=== PATIENT | male | born 1970 | race Caucasian/White ===

== ENCOUNTER 2018-12-23 07:12 | Inpatient (IN) ==
[2018-12-23] MEDS ORDERED: Heparin 1,000 UNITS/500 mL 500 ML ONE (07:23)
[2018-12-23] MEDS ORDERED: *HR* Rocuronium Bromide 50 MG/5 ML VIAL ONE ×3 (07:26→11:51)
[2018-12-23] MEDS ORDERED: Dexamethasone 4 MG/ML VIAL ONE (07:26)
[2018-12-23] MEDS ORDERED: Lidocaine -MPF 2% 2 ML VIAL ONE ×2 (07:26→07:27)
[2018-12-23] MEDS ORDERED: Ondansetron 4 MG/2 ML VIAL ONE (07:26)
[2018-12-23] MEDS ORDERED: *HR* Succinylcholine 200 MG/10 ML VIAL IVP ONE (07:26)
[2018-12-23] MEDS ORDERED: *HR* Propofol 200 MG/20 ML VIAL IVP ONE (07:37)
[2018-12-23] MEDS ORDERED: *HR* Midazolam HCl 2 MG/2 ML VIAL ONE (07:37)
[2018-12-23] MEDS ORDERED: *HR* FentaNYL (PF) 100 MCG/2 ML VIAL ONE (07:37)
[2018-12-23] MEDS ORDERED: CeFAZolin Syr 2,000MG/20 ML 2,000 MG/20 ML SYRINGE IVPB ONE (07:38)
[2018-12-23] MEDS ORDERED: *HR* Remifentanil 2 MG VIAL IVP ONE (07:42)
[2018-12-23] MEDS ORDERED: cefOXitin 1,000 MG, Sodium Chloride IRRigation 1,000 ML IR ONE (07:45)
[2018-12-23] MEDS ORDERED: Ringers Solution, Lactated 1,000 ML IVC SCH (07:45)
[2018-12-23] MEDS ORDERED: Famotidine 20 MG/2 ML VIAL IVP ONE (07:50)
[2018-12-23] MEDS ORDERED: Acetaminophen IV 1,000 MG/100 ML INFUS..BTL IVPB ONE (07:51)
[2018-12-23] MEDS ORDERED: Albumin Human 5% 0 GM/0 ML VIAL ONE (07:53)
[2018-12-23] MEDS ORDERED: *HR* Vasopressin 20 UNIT/ML VIAL ONE ×2 (07:53→10:23)
--- NOTE | 2018-12-23 07:53 | Anesthesia Evaluation PreOp ---
Date of Encounter: 12/23/18 Time of Encounter: 08:00 - Past History Planned Operation: Thoracotomy Esophagogastrectomy Bronchoscopy Cardiac History: Denies any Significant Hx Pulmonary History: Denies Any Significant HX, Other (Allergic Rhinitis) Other Medical History: Other (Achalasia) Anesthesia History: No Prior Anesthetic Complications Alcohol Use: none, occasionally Drug use: none, marijuana Medications and Allergies Phenazopyridine HCl [Pyridium] 200 mg PO TIDAC #6 tab 12/06/17 [Rx] Sulfamethoxazole/Trimeth DS [Bactrim DS] 1 each PO BID #14 tablet 12/06/17 [Rx] Allergy/AdvReac Type Severity Reaction Status Date / Time No Known Allergies Allergy Verified 12/06/17 12:34 - Meds/Allergy Pre-op Review Medications Reviewed: Yes Allergies Reviewed: Yes Beta Blockers on Current Med List: No Anesthesia Results - Labs Laboratory Tests 12/14/18 12/14/18 14:01 14:01 Hgb 13.9 Hct 41.7 Plt Count 306 Sodium 138 Potassium 3.9 BUN 14 Creatinine 0.93 Albumin 4.8 - Imaging EKG: report reviewed ([facility]) Anesthesia Exam O2 Sat Height 1.68 m Weight 58.513 kg Height: 5'6 Weight: 130 lbs NPO (# of Hours): MN Pain Scale: 0 - HEENT Pupil (Motor): Pupils equal, EOMI Mallampati: II Teeth: Normal Oral Opening: Greater than 3 - TELEPHONE ADVICE NURSE LOC: Oriented TELEPHONE ADVICE NURSE Motor: Normal RUE, Normal LUE, Normal RLE, Normal LLE, Normal Face TELEPHONE ADVICE NURSE Sensory: Normal: RUE, LUE, RLE, LLE, Face - Cardiac Rhythm: Regular Murmur: None JVD: No Carotid Bruit: No - Pulmonary Breath Sounds: bilateral Clear Respiratory Effort: Symmetrical Anesthesia Assess/Plan ASA Score: 2 Level of consciousness: Cooperative, Oriented Anesthetic Plan: General Autologous Blood: No Monitoring Plan: Standard Monitors, A-Line, CVC Recovery Plan: PACU (Discussed GA, possible A-Line, poss Central Line, possible Thoracic Epidural, agrees to proceed, possible post op ventilation)
--- NOTE | 2018-12-23 08:06 | History & Physical Report ---
Date of Encounter: 12/23/18 Time of Encounter: 08:06 24 Hour HP Update - Instructions Instructions: If the History and Physical is less than 30 days old and was completed prior to A.M. admission and or procedure and has NOT been updated on calendar day of procedure please complete this update prior to performing procedure. - Update Patient reports changes in Medical Condition: No Changes in examination, assessment, or condition: No Changes in Medication: No Preop tests/diagnostics Reviewed: Yes Surgery Remains Indicated: Yes Consent for Planned Operative Procedure(s) Verified: Yes - Pre-Operative Checklist Preoperative Checklist Indicated: Yes Prophylactic Antibiotic Ordered: Yes Home Medications Include Beta Alphonse: No Beta Alphonse Taken Today (Day of Surgery): No Beta Alphonse Taken Yesterday (Day Prior to Surgery): No Is VTE Prophylaxis Indicated?: Yes
--- NOTE | 2018-12-23 09:15 | Anesthesia Procedures ---
Date of Encounter: 12/23/18 Time of Encounter: 08:50 Procedures: Anesthesia - Arterial Line Consent obtained: written consent Time out performed: Yes Size (Gauge): 20 Length (inches): 1 3/4 Technique Used: sterile prep, guide wire technique, direct puncture technique Post-Procedure: line taped into place, dry sterile dressing placed Patient tolerated procedure: well, no complications Site: Radial R Comments: Dr Lemon attempted several times on left radial artery, able to get blood flow but unable to place guidewire. I was able to place catheter on right radial. Line placed after induction. - Central Line Placement Right SC Consent obtained: written consent Time out performed: Yes Patient placed on monitor/pulse ox: Yes MD prep: mask, gown, gloves Central line prep: Chlorhexidine scrub, sterile drapes applied Ultrasound used for placement: No Technique: Seldinger Lumen Inserted: triple Size / Length: 7 Fr / 16 cm Post procedure: sutured in place, good blood return, all ports aspirated, flushed, capped, sterile dressing applied Patient tolerated procedure: well, no complications Complications: none Comments: Need for central line due to need to monitor CVP and need for good iv access for big case. Subclavian chosen as site due to patient comfort and lower infection risk. Line placed easily with one attempt. No arrythmias. Lines easily aspirated and flushed. Sutured in place. Biopatch and Opsite placed prior to sterile drape removal.
[2018-12-23] MEDS ORDERED: *HR* PHENYLEPHRINE 1,000 MCG/10 ML SYRINGE IVP ONE (09:45)
[2018-12-23] MEDS ORDERED: EPHEDrine 50 MG/ML VIAL ONE (09:46)
[2018-12-23 10:05] LABS: ABG Base Excess -4 mEq/L (-2 to 3); ABG Chloride 106 mEq/L (98-107); ABG Glucose 156 mg/dL (60-95); ABG HCO3 20 mEq/L (21-27); ABG Ionized Calcium 1.14 mmol/L (1.15-1.35); ABG Oxygen Saturation 100 % (95-98); ABG PCO2 31 mmHg (35-45); ABG PH 7.42 pH Units (7.32-7.45); ABG PO2 249 mmHg (85-104); ABG TCO2 21 mEq/L (20-26)
[2018-12-23] MEDS ORDERED: *HR* HYDROMORPHONE 2 MG/ML VIAL ONE (11:35)
[2018-12-23 12:34] LABS: ABG Base Excess -3 mEq/L (-2 to 3); ABG Chloride 106 mEq/L (98-107); ABG Glucose 217 mg/dL (60-95); ABG HCO3 22 mEq/L (21-27); ABG Ionized Calcium 1.12 mmol/L (1.15-1.35); ABG Oxygen Saturation 97 % (95-98); ABG PCO2 38 mmHg (35-45); ABG PH 7.37 pH Units (7.32-7.45); ABG PO2 95 mmHg (85-104); ABG TCO2 23 mEq/L (20-26)
[2018-12-23] MEDS ORDERED: Ketorolac 30 MG/ML VIAL ONE (12:43)
--- NOTE | 2018-12-23 13:33 | Operative Note ---
Date of procedure: 12/23/18 Pre-op diagnosis: achalasia, esophageal dysmotility Post-op diagnosis: same Procedure: bronchoscopy, Loco-Luis esophagogastrectomy, feeding jejunostomy Complications: none Anesthesia: GETA Local Anesthetics: 0.5% Sensorcaine HCL SubQ (cc) Co-Surgeon: Keyshawn Friedman Was there an gynecological assistant present: No Estimated blood loss (cc): 60 Specimen: distal esophagus proximal stomach Condition: stable Disposition: ICU Procedure in Detail: Patient was brought to the operating room and placed on the operating table in the supine position. After undergoing general anesthesia central lines and arterial lines were placed by anesthesia. Patient was intubated prepped and draped in the usual sterile fashion. A midline incision was made small amounts of adhesions were taken down throughout the abdomen. Esophagus was mobilized previous partial fundoplication removed. Once encircling the esophagus and dissecting bluntly into the superior mediastinum, the duodenum was kocherized. A pyloroplasty was performed from the stomach or the pylorus onto the duodenum and closed transversely with interrupted 2-0 silk sutures. Once completed 40 cm distal to the ligament of Treitz a feeding jejunostomy was performed placed through the abdominal wall into the mid jejunum with 2 2-0 silk suturesin a pursestring ma feeding tube in the small intestines. The intestine was then tacked to the anterior abdominal wall with interrupted 2-0 silk sutures. Hemostasis was excellent with good mobilization of the distal esophagus and the posterior mediastinum. The right and left gastroepiploic epiploic blood vessels had good pulsatile flow. The left gastric was sacrificed in order to allow mobilization of the stomach. The pyloroplasty appeared to have no leak. Midline was closed with a running 0 doubled stranded Prolene. And then the epidermis and dermis closed with 4-0 Monocryl and a running 3-0 Vicryl respectively. Sterile dressings were applied. A single-lumen endotracheal tube was exchanged for a hemorrhoid endotracheal tube anesthesia had difficulty lacing so I performed a bronchoscopy and U Seldinger technique to place the nasogastric tube through the true vocal cords down into the left mainstem bronchus. Patient was then placed on the operating room table in the left lateral decubitus position with care to pad all pressure points. He was prepped and draped in the usual sterile fashion. Muscle-sparing thoracotomy was made on the lateral border of the latissimus dorsi muscle through the skin down of the subcutaneous tissues with Bovie used to control hemostasis and to continue the d issection down to the chest wall by mobilizing the latissimus dorsi muscle posteriorly, incising the ausculatory triangle, and mobilizing the serratus and your muscle anteriorly. The 5th intercostal space was entered. The esophagus was further mobilized from the hiatus to the azygos vein which had been divided using the vascular stapler. 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 Once mobilizing the esophagus the stomach and esophagus were cut with good venous and pulsatile arterial bleeding from the divided esophagus and stomach. The 2 structures were reanastomosed using interrupted 2-0 Vicryl sutures and just prior to completing the anastomosis the nasogastric tube was advanced down into the new esophagus/mid to distal stomach. Her vertebral nerve blocks were performed. A 28-Irish chest tube placed through a separate skin incision was secured in place with a #2 Ethibond suture. The intercostal space closed with #1 Vicryl. The ausculatory triangle closed with a #1 Vicryl. A flat Waldemar-Keating drain placed through a separate skin incision was secured in place with a #2-0 silk suture. Remaining incision was closed with 2 layers of 0 Vicryl and then a 4-0 Monocryl particular stitch with dressings consisting of Steri-Strips and sterile gauze. Patient was extubated and taken to the intensive care unit.
[2018-12-23] MEDS ORDERED: Ondansetron 4 MG/2 ML VIAL IVP PRN (13:41)
[2018-12-23] MEDS ORDERED: Naloxone 0.4 MG/ML INJ IVP PRN (13:41)
--- NOTE | 2018-12-23 13:54 | Anesthesia Evaluation Post Op ---
Date of Encounter: 12/23/18 Time of Encounter: 14:00 - Lungs Lungs: Clear Ascult./Percussion - Airway Airway: Non-obstructed - Cardiovascular Regular Rate - Mental Status Mental Status: Asleep with brisk response to light stimulation - Pain Pain Scale: 5 - Nausea Vomiting Nausea Vomiting: Not Present - Hydration Hydration: NPO - Discharge PostOp Status: Transfer Patient to floor (To ICU)
[2018-12-23] MEDS: 0.9 % Sodium Chloride 1,000 ML IVC SCH ×2 (15:06→23:37)
[2018-12-23] MEDS: *HR* Heparin 5,000 UNIT/ML VIAL SQ SCH ×2 (15:17→20:42)
[2018-12-23] MEDS: Morphine PCA 30 MG/ 30 ML 30 ML PCA.VIAL IVC PRN (16:10)
[2018-12-23] MEDS: Ipratropium/Albuterol Neb 3 ML IH SCH ×3 (16:22→23:56)
[2018-12-23] MEDS: Ketorolac 15 MG/ML VIAL IVP SCH ×2 (20:41→23:36)
[2018-12-24] MEDS: Ipratropium/Albuterol Neb 3 ML IH SCH ×5 (03:56→19:56)
[2018-12-24 04:06] LABS: Hematocrit 33.7 % (37.5-50.1); Hemoglobin 11.6 g/dL (12.9-16.9); Mean Corpuscular HGB Conc 34.4 g/dL (31.6-35.5); Mean Corpuscular Hemoglobin 29.5 pg (28.0-33.3); Mean Corpuscular Volume 85.8 fL (83.0-100.0); Mean Platelet Volume 9.5 fL (9.4-12.4); Platelet Count 247 K/mcL (140-400); Red Blood Count 3.93 M/mcL (4.19-5.50); Red Cell Distribution Width 12.4 % (11.5-14.5); White Blood Count 14.8 K/mcL (4.3-11.1)
[2018-12-24 04:34] LABS: % Iron Saturation 4 % (20-55); BUN/Creatinine Ratio 18 (6-26); Blood Urea Nitrogen 15 mg/dL (6-20); Carbon Dioxide 23 mEq/L (23-29); Chloride 106 mEq/L (98-107); Glucose 156 mg/dL (70-105); Iron 11 mcg/dL (65-175); Magnesium 1.8 mg/dL (1.6-2.6); Osmolality,Calculated 288 (280-300); Phosphorous 3.3 mg/dL (2.7-4.5); Potassium 4.1 mEq/L (3.5-5.1); Sodium 137 mEq/L (136-145); Transferrin 190 mg/dL (203-362); eGFR For African Americans > 60 (> 60); eGFR For Non-African Americans > 60 (> 60)
[2018-12-24] MEDS: *HR* Heparin 5,000 UNIT/ML VIAL SQ SCH ×3 (06:07→23:08)
[2018-12-24] MEDS: Ketorolac 15 MG/ML VIAL IVP SCH ×4 (06:08→23:08)
[2018-12-24] MEDS: 0.9 % Sodium Chloride 1,000 ML IVC SCH ×2 (08:33→17:51)
[2018-12-24] MEDS: Pantoprazole 40 MG VIAL IVP SCH (08:45)
[2018-12-24] MEDS ORDERED: Iron Sucrose Complex 400 MG in 0.9 % Sodium Chloride 250 ML IVPB ONE (08:56)
[2018-12-24] MEDS ORDERED: Thiamine (B-1) 100 MG in 0.9 % Sodium Chloride 50 ML IVPB ONE (09:06)
[2018-12-24] MEDS ORDERED: Folic Acid 1 MG in 0.9 % Sodium Chloride 50 ML IVPB ONE (09:06)
--- NOTE | 2018-12-24 09:08 | Cardiothoracic Progress Note ---
Date of Encounter: 12/24/18 Time of Encounter: 09:05 - Assessment and plan (1) Esophageal dysmotility Current Visit: Yes Status: Chronic The assessment and plan as outlined above was discussed with the patient and/or family members who expressed understanding and agreement. All questions were answered. rounded with nurse no orders for cvp. replace mg. may ambulate per orders. remove hernandez (2) Achalasia of esophagus Current Visit: Yes Status: Chronic The assessment and plan as outlined above was discussed with the patient and/or family members who expressed understanding and agreement. All questions were answered. (3) Iron deficiency anemia due to dietary causes Current Visit: Yes Status: Chronic The assessment and plan as outlined above was discussed with the patient and/or family members who expressed understanding and agreement. All questions were answered. replace iron today and tomorrow Vital Signs, Last 4 Hours Temp Pulse Resp BP Pulse Ox 12/24/18 08:00 86 14 115/72 96 12/24/18 07:37 16 97 12/24/18 07:30 98.4 F 12/24/18 06:00 95 12 111/68 95 Oxgyen Flow Rate Oxygen Flow Rate (LPM) 8 Clinical Data, last 8 Hours Output, Chest Tube Drainage 30 Amount [Right Mid-Axillary Chest] Output, Chest Tube Drainage 50 Amount [Right Mid-Axillary Chest] Weight 12/22/18 12/23/18 12/24/18 23:59 23:59 23:59 Weight 58.513 kg 59.6 kg - Physical Examination General: Conversant, No Apparent Distress, Well developed, Well nourished HEENT: Atraumatic Cardiac: Reg Rate and Rhythm, Normal S1 and S2 Incision: No signs of infection Chest tubes: Minimal drainage Lungs: Normal Breath Sounds Neuro: Alert and responsive, No focal deficits noted, Cranial nerves intact, Motor nerves intact Abdomen: Soft - Labs 12/24/18 03:59 12/24/18 03:59 Lab Results, Last 24 hours 12/24/18 12/24/18 03:59 03:59 WBC 14.8 H Hgb 11.6 L Hct 33.7 L Plt Count 247 Sodium 137 Potassium 4.1 Chloride 106 Carbon Dioxide 23 BUN 15 Creatinine 0.83 Glucose 156 H Calcium 8.0 L Magnesium 1.8 - Imaging Chest Xray: image reviewed - VTE Documentation of Mechanical Device: Intermittent pneumatic compression device Consult Discharge Plan - Plan Referrals: Ramsey Gama MD [Primary Care Provider] -
[2018-12-25] MEDS: Ipratropium/Albuterol Neb 3 ML IH SCH ×5 (00:19→22:46)
[2018-12-25] MEDS: 0.9 % Sodium Chloride 1,000 ML IVC SCH ×3 (01:51→11:44)
[2018-12-25 03:57] LABS: Hematocrit 29.8 % (37.5-50.1); Mean Corpuscular HGB Conc 33.6 g/dL (31.6-35.5); Mean Corpuscular Hemoglobin 29.8 pg (28.0-33.3); Mean Corpuscular Volume 88.7 fL (83.0-100.0); Mean Platelet Volume 9.6 fL (9.4-12.4); Platelet Count 202 K/mcL (140-400); Red Blood Count 3.36 M/mcL (4.19-5.50); Red Cell Distribution Width 12.9 % (11.5-14.5)
[2018-12-25 04:20] LABS: BUN/Creatinine Ratio 20 (6-26); Blood Urea Nitrogen 16 mg/dL (6-20); Carbon Dioxide 24 mEq/L (23-29); Chloride 109 mEq/L (98-107); Magnesium 2.3 mg/dL (1.6-2.6); Potassium 3.9 mEq/L (3.5-5.1); Sodium 137 mEq/L (136-145); eGFR For African Americans > 60 (> 60); eGFR For Non-African Americans > 60 (> 60)
[2018-12-25 04:28] LABS: Glucose 98 mg/dL (70-105); Osmolality,Calculated 285 (280-300); Phosphorous 2.9 mg/dL (2.7-4.5)
[2018-12-25] MEDS: Ketorolac 15 MG/ML VIAL IVP SCH ×4 (06:20→23:26)
[2018-12-25] MEDS: *HR* Heparin 5,000 UNIT/ML VIAL SQ SCH ×3 (06:20→21:47)
[2018-12-25] MEDS: Pantoprazole 40 MG VIAL IVP SCH (08:45)
[2018-12-25] MEDS ORDERED: Iron Sucrose Complex 400 MG in 0.9 % Sodium Chloride 250 ML IVPB ONE (08:56)
[2018-12-25] MEDS ORDERED: Potassium Chloride 40 MEQ, Lidocaine 1% 2 ML in 0.9 % Sodium Chloride 500 ML IVPB ONE (09:45)
--- NOTE | 2018-12-25 10:49 | Cardiothoracic Progress Note ---
Date of Encounter: 12/25/18 Time of Encounter: 10:48 - Assessment and plan (1) Esophageal dysmotility Current Visit: Yes Status: Chronic The assessment and plan as outlined above was discussed with the patient and/or family members who expressed understanding and agreement. All questions were answered. rounded with nurse autumn k labs and xray in am. tx to floor start enteral nutrition tomorrow (2) Achalasia of esophagus Current Visit: Yes Status: Chronic The assessment and plan as outlined above was discussed with the patient and/or family members who expressed understanding and agreement. All questions were answered. (3) Iron deficiency anemia due to dietary causes Current Visit: Yes Status: Chronic The assessment and plan as outlined above was discussed with the patient and/or family members who expressed understanding and agreement. All questions were answered. replace iron today Vital Signs, Last 4 Hours Temp Pulse Resp BP Pulse Ox 12/25/18 08:00 83 18 126/88 94 12/25/18 07:04 98.4 F Oxgyen Flow Rate Oxygen Flow Rate (LPM) 8 Clinical Data, last 8 Hours Output, Chest Tube Drainage 60 Amount [Right Mid-Axillary Chest] Output, Chest Tube Drainage 65 Amount [Right Mid-Axillary Chest] Output, Urine Amount 400 Output, Urine Amount 0 Weight 12/23/18 12/24/18 12/25/18 23:59 23:59 23:59 Weight 58.513 kg 59.6 kg - Physical Examination General: Conversant, No Apparent Distress, Well developed, Well nourished HEENT: Atraumatic, Normocephaly Cardiac: Reg Rate and Rhythm, Normal S1 and S2, No Murmur Incision: No signs of infection, Dry/intact dressing, Open to air Lungs: Normal Breath Sounds Neuro: Alert and responsive, No focal deficits noted, Cranial nerves intact, Motor nerves intact Abdomen: Soft, Other (scant bs ) Extremities: No Clubbing, No Cyanosis, No Edema, Normal Pulses - Labs 12/25/18 03:45 12/25/18 03:45 Lab Results, Last 24 hours 12/25/18 12/25/18 03:45 03:45 WBC 11.0 Hgb 10.0 L D Hct 29.8 L Plt Count 202 Sodium 137 Potassium 3.9 Chloride 109 H Carbon Dioxide 24 BUN 16 Creatinine 0.81 Glucose 98 Calcium 8.0 L Magnesium 2.3 - Imaging Chest Xray: image reviewed - VTE Documentation of Mechanical Device: Intermittent pneumatic compression device Consult Discharge Plan - Plan Referrals: Ramsey Gama MD [Primary Care Provider] -
[2018-12-25] MEDS: Morphine PCA 30 MG/ 30 ML 30 ML PCA.VIAL IVC PRN (12:42)
[2018-12-25] MEDS ORDERED: Naloxone 0.4 MG/ML INJ IVP PRN (13:02)
[2018-12-25] MEDS ORDERED: 0.9 % Sodium Chloride 1,000 ML IVC SCH (13:02)
[2018-12-25] MEDS ORDERED: Morphine PCA 30 MG/ 30 ML 30 ML PCA.VIAL IVC PRN (13:02)
[2018-12-25] MEDS ORDERED: Ondansetron 4 MG/2 ML VIAL IVP PRN (13:02)
[2018-12-25] MEDS ORDERED: Ipratropium/Albuterol Neb 3 ML IH SCH (16:00)
[2018-12-25] MEDS ORDERED: *HR* Dextrose 50 % in Water (Syg) 50 ML SYRINGE IVP ONE (17:33)
[2018-12-25] MEDS ORDERED: D5% in Water 1,000 ML IVC PRN (17:34)
[2018-12-25] MEDS ORDERED: *HR* Dextrose 50 % in Water (Syg) 50 ML SYRINGE IVP PRN (17:34)
[2018-12-25] MEDS: D5% in 0.9% NACL 1,000 ML IVC SCH (18:05)
[2018-12-26] MEDS: D5% in 0.9% NACL 1,000 ML IVC SCH ×3 (02:18→17:06)
[2018-12-26] MEDS: Ipratropium/Albuterol Neb 3 ML IH SCH ×2 (03:33→10:19)
[2018-12-26 04:27] LABS: Hematocrit 30.4 % (37.5-50.1); Hemoglobin 10.1 g/dL (12.9-16.9); Mean Corpuscular HGB Conc 33.2 g/dL (31.6-35.5); Mean Corpuscular Hemoglobin 29.8 pg (28.0-33.3); Mean Corpuscular Volume 89.7 fL (83.0-100.0); Mean Platelet Volume 9.9 fL (9.4-12.4); Platelet Count 195 K/mcL (140-400); Red Blood Count 3.39 M/mcL (4.19-5.50); Red Cell Distribution Width 13.1 % (11.5-14.5)
[2018-12-26 04:48] LABS: BUN/Creatinine Ratio 17 (6-26); Blood Urea Nitrogen 11 mg/dL (6-20); Calcium 7.7 mg/dL (8.6-10.3); Carbon Dioxide 22 mEq/L (23-29); Chloride 110 mEq/L (98-107); Glucose 119 mg/dL (70-105); Osmolality,Calculated 291 (280-300); Phosphorous 2.1 mg/dL (2.7-4.5); Potassium 3.8 mEq/L (3.5-5.1); Sodium 140 mEq/L (136-145); eGFR For African Americans > 60 (> 60); eGFR For Non-African Americans > 60 (> 60)
[2018-12-26] MEDS: Ketorolac 15 MG/ML VIAL IVP SCH ×4 (06:08→23:18)
[2018-12-26] MEDS: *HR* Heparin 5,000 UNIT/ML VIAL SQ SCH ×3 (06:08→23:18)
[2018-12-26] MEDS: Pantoprazole 40 MG VIAL IVP SCH (08:15)
--- NOTE | 2018-12-26 10:52 | Cardiothoracic Progress Note ---
Date of Encounter: 12/26/18 Time of Encounter: 10:35 - Assessment and plan (1) Achalasia of esophagus Current Visit: Yes Status: Chronic The patient is recovering well from his however Luis esophagogastrectomy. The tube feedings were begun today. The assessment and plan as outlined above was discussed with the patient and/or family members who expressed understanding and agreement. All questions were answered. - Subjective Procedure(s) Performed: POD#3 S/P Loco-Luis esophagogastrectomy Interval history: The patient remained hemodynamically stable overnight. He is sitting in a chair at the bedside. He has no complaints. Vital Signs, Last 4 Hours Temp Pulse Resp BP Pulse Ox 12/26/18 08:00 85 12/26/18 07:43 98.5 F 90 16 118/61 94 Oxgyen Flow Rate Oxygen Flow Rate (LPM) 0 Clinical Data, last 8 Hours Output, Chest Tube Drainage 110 Amount [Right Mid-Axillary Chest] Output, Chest Tube Drainage 40 Amount [Right Mid-Axillary Chest] Output, Urine Amount 400 Weight 12/24/18 12/25/18 12/26/18 23:59 23:59 23:59 Weight 59.6 kg - Physical Examination General: Conversant, No Apparent Distress Neck: No JVD, Normal carotid pulses Cardiac: Reg Rate and Rhythm, Normal S1 and S2, No Murmur Incision: No signs of infection, Dry/intact dressing Chest tubes: Minimal drainage, Other (No air leak) Lungs: Normal Breath Sounds, No Wheeze, Rales, Rhonchi Neuro: Alert and responsive, No focal deficits noted Vascular: Normal capillary refill Abdomen: Soft, Non-tender Musculoskeletal: No Chest Wall Tenderness Extremities: No Clubbing, No Cyanosis, No Edema, Normal Pulses - Labs 12/26/18 04:15 12/26/18 04:15 Lab Results, Last 24 hours 12/26/18 12/26/18 04:15 04:15 WBC 9.0 Hgb 10.1 L Hct 30.4 L Plt Count 195 Sodium 140 Potassium 3.8 Chloride 110 H Carbon Dioxide 22 L BUN 11 Creatinine 0.64 L Glucose 119 H Calcium 7.7 L Magnesium 2.0 - VTE Documentation of Mechanical Device: Intermittent pneumatic compression device Consult Discharge Plan - Plan Referrals: Ramsey Gama MD [Primary Care Provider] -
[2018-12-26] MEDS ORDERED: *HR* FentaNYL (PF) 100 MCG/2 ML VIAL IVP PRN (10:53)
[2018-12-26] MEDS ORDERED: Ipratropium/Albuterol Neb 3 ML IH PRN (10:53)
[2018-12-27] MEDS: D5% in 0.9% NACL 1,000 ML IVC SCH ×2 (01:00→10:05)
[2018-12-27] MEDS: *HR* Heparin 5,000 UNIT/ML VIAL SQ SCH ×2 (05:04→12:02)
[2018-12-27 05:28] LABS: BUN/Creatinine Ratio 10 (6-26); Blood Urea Nitrogen 7 mg/dL (6-20); Calcium 7.8 mg/dL (8.6-10.3); Carbon Dioxide 24 mEq/L (23-29); Chloride 111 mEq/L (98-107); Glucose 116 mg/dL (70-105); Magnesium 1.9 mg/dL (1.6-2.6); Osmolality,Calculated 291 (280-300); Phosphorous 2.2 mg/dL (2.7-4.5); Potassium 3.9 mEq/L (3.5-5.1); Sodium 141 mEq/L (136-145); eGFR For African Americans > 60 (> 60); eGFR For Non-African Americans > 60 (> 60)
[2018-12-27 05:30] LABS: Hematocrit 28.3 % (37.5-50.1); Hemoglobin 9.4 g/dL (12.9-16.9); Mean Corpuscular HGB Conc 33.2 g/dL (31.6-35.5); Mean Corpuscular Hemoglobin 29.9 pg (28.0-33.3); Mean Corpuscular Volume 90.1 fL (83.0-100.0); Mean Platelet Volume 9.7 fL (9.4-12.4); Platelet Count 204 K/mcL (140-400); Red Blood Count 3.14 M/mcL (4.19-5.50); Red Cell Distribution Width 12.8 % (11.5-14.5); White Blood Count 7.7 K/mcL (4.3-11.1)
[2018-12-27] MEDS: Ketorolac 15 MG/ML VIAL IVP SCH ×3 (05:40→17:36)
[2018-12-27] MEDS ORDERED: Potassium Chloride 40 MEQ, Lidocaine 1% 2 ML in 0.9 % Sodium Chloride 500 ML IVPB ONE (08:32)
--- NOTE | 2018-12-27 08:51 | Cardiothoracic Progress Note ---
Date of Encounter: 12/27/18 Time of Encounter: 08:49 - Assessment and plan (1) Esophageal dysmotility Current Visit: Yes Status: Chronic The assessment and plan as outlined above was discussed with the patient and/or family members who expressed understanding and agreement. All questions were answered. rounded with nurse replace k and mg increase tf swallow test tomorrow (2) Achalasia of esophagus Current Visit: Yes Status: Chronic The assessment and plan as outlined above was discussed with the patient and/or family members who expressed understanding and agreement. All questions were answered. (3) Iron deficiency anemia due to dietary causes Current Visit: Yes Status: Chronic The assessment and plan as outlined above was discussed with the patient and/or family members who expressed understanding and agreement. All questions were answered. no further tx Vital Signs, Last 4 Hours Temp Pulse Resp Pulse Ox 12/27/18 08:02 98.2 F 75 16 96 Oxgyen Flow Rate Oxygen Flow Rate (LPM) 0 Clinical Data, last 8 Hours Output, Chest Tube Drainage 50 Amount [Right Mid-Axillary Chest] Output, Urine Amount 350 Weight 12/25/18 12/26/18 12/27/18 23:59 23:59 23:59 Weight 63.7 kg - Physical Examination General: Conversant, No Apparent Distress, Well developed, Well nourished HEENT: Atraumatic, Normocephaly Cardiac: Reg Rate and Rhythm, Normal S1 and S2 Incision: No signs of infection Chest tubes: Minimal drainage Lungs: Normal Breath Sounds Neuro: Alert and responsive, No focal deficits noted, Cranial nerves intact, Motor nerves intact Abdomen: Soft, Non-tender - Labs 12/27/18 04:59 12/27/18 04:59 Lab Results, Last 24 hours 12/27/18 12/27/18 04:59 04:59 WBC 7.7 Hgb 9.4 L Hct 28.3 L Plt Count 204 Sodium 141 Potassium 3.9 Chloride 111 H Carbon Dioxide 24 BUN 7 Creatinine 0.72 Glucose 116 H Calcium 7.8 L Magnesium 1.9 - VTE Documentation of Mechanical Device: Intermittent pneumatic compression device Consult Discharge Plan - Plan Referrals: Ramsey Gama MD [Primary Care Provider] -
[2018-12-27] MEDS: Pantoprazole 40 MG VIAL IVP SCH (10:04)
[2018-12-27] MEDS: Tetracaine/Benzocaine/Butamben 1 SPRAY AEROSOL MM PRN ×2 (10:31→17:51)
[2018-12-28] MEDS: *HR* Heparin 5,000 UNIT/ML VIAL SQ SCH ×4 (00:21→22:32)
[2018-12-28] MEDS: Ketorolac 15 MG/ML VIAL IVP SCH ×4 (00:25→18:26)
[2018-12-28] MEDS: D5% in 0.9% NACL 1,000 ML IVC SCH ×4 (01:01→18:26)
[2018-12-28] MEDS: Tetracaine/Benzocaine/Butamben 1 SPRAY AEROSOL MM PRN (01:02)
[2018-12-28 01:12] LABS: Hematocrit 29.2 % (37.5-50.1); Hemoglobin 9.9 g/dL (12.9-16.9); Mean Corpuscular HGB Conc 33.9 g/dL (31.6-35.5); Mean Corpuscular Hemoglobin 30.2 pg (28.0-33.3); Mean Platelet Volume 9.6 fL (9.4-12.4); Platelet Count 236 K/mcL (140-400); Red Blood Count 3.28 M/mcL (4.19-5.50); Red Cell Distribution Width 12.7 % (11.5-14.5); White Blood Count 7.6 K/mcL (4.3-11.1)
[2018-12-28 01:31] LABS: BUN/Creatinine Ratio 11 (6-26); Blood Urea Nitrogen 8 mg/dL (6-20); Calcium 7.8 mg/dL (8.6-10.3); Carbon Dioxide 24 mEq/L (23-29); Chloride 110 mEq/L (98-107); Glucose 124 mg/dL (70-105); Magnesium 2.1 mg/dL (1.6-2.6); Osmolality,Calculated 290 (280-300); Phosphorous 2.1 mg/dL (2.7-4.5); Potassium 3.9 mEq/L (3.5-5.1); Sodium 140 mEq/L (136-145); eGFR For African Americans > 60 (> 60); eGFR For Non-African Americans > 60 (> 60)
--- NOTE | 2018-12-28 09:05 | Cardiothoracic Progress Note ---
Date of Encounter: 12/28/18 Time of Encounter: 09:04 - Assessment and plan (1) Esophageal dysmotility Current Visit: Yes Status: Chronic The assessment and plan as outlined above was discussed with the patient and/or family members who expressed understanding and agreement. All questions were answered. rounded with nurse replace phosphorus labs and xray tomorrow removed patrice and ng (2) Achalasia of esophagus Current Visit: Yes Status: Chronic The assessment and plan as outlined above was discussed with the patient and/or family members who expressed understanding and agreement. All questions were answered. Vital Signs, Last 4 Hours Temp Pulse Resp BP Pulse Ox 12/28/18 07:19 99.1 F 77 18 131/83 95 12/28/18 05:19 87 Oxgyen Flow Rate Oxygen Flow Rate (LPM) 0 Clinical Data, last 8 Hours Output, Chest Tube Drainage 250 Amount [Right Mid-Axillary Chest] Output, Urine Amount 400 Weight 12/26/18 12/27/18 12/28/18 23:59 23:59 23:59 Weight 63.7 kg - Physical Examination General: Conversant, No Apparent Distress, Well developed, Well nourished Cardiac: Reg Rate and Rhythm Incision: No signs of infection, Dry/intact dressing, Open to air Chest tubes: Minimal drainage Neuro: Alert and responsive, No focal deficits noted, Cranial nerves intact, Motor nerves intact - Labs 12/28/18 00:16 12/28/18 00:16 Lab Results, Last 24 hours 12/28/18 12/28/18 00:16 00:16 WBC 7.6 Hgb 9.9 L Hct 29.2 L Plt Count 236 Sodium 140 Potassium 3.9 Chloride 110 H Carbon Dioxide 24 BUN 8 Creatinine 0.71 Glucose 124 H Calcium 7.8 L Magnesium 2.1 - Imaging Chest Xray: image reviewed (esophagram looks good.) - VTE Documentation of Mechanical Device: Intermittent pneumatic compression device Consult Discharge Plan - Plan Additional Instructions: Please go to Out Patient testing on 2018 around 1015AM to get an x-ray done before you go see Dr. Friedman. The office is sending the order over to out patient testing at the [facility]. Referrals: Keyshawn Friedman MD [Partnered Physician] - 01/11/19 11:15 am Ramsey Gama MD [Primary Care Provider] - (Sent web request on 12-27-18 @ [phone])
[2018-12-28] MEDS: Pantoprazole 40 MG VIAL IVP SCH (10:12)
[2018-12-28] MEDS ORDERED: E-Z-PAQUE (BARIUM SULF) SUSP 1 BOTTLE PO ONE (15:41)
[2018-12-28] MEDS: Docusate Oral Soln 100 MG/10 ML UDC GTUBE SCH ×2 (20:52→23:26)
[2018-12-29] MEDS: D5% in 0.9% NACL 1,000 ML IVC SCH ×3 (02:34→19:02)
[2018-12-29 04:32] LABS: Hematocrit 27.8 % (37.5-50.1); Hemoglobin 9.3 g/dL (12.9-16.9); Mean Corpuscular HGB Conc 33.5 g/dL (31.6-35.5); Mean Corpuscular Hemoglobin 30.4 pg (28.0-33.3); Mean Corpuscular Volume 90.8 fL (83.0-100.0); Mean Platelet Volume 9.7 fL (9.4-12.4); Platelet Count 222 K/mcL (140-400); Red Blood Count 3.06 M/mcL (4.19-5.50); White Blood Count 8.5 K/mcL (4.3-11.1)
[2018-12-29 04:54] LABS: BUN/Creatinine Ratio 21 (6-26); Blood Urea Nitrogen 14 mg/dL (6-20); Calcium 7.6 mg/dL (8.6-10.3); Carbon Dioxide 25 mEq/L (23-29); Chloride 109 mEq/L (98-107); Glucose 121 mg/dL (70-105); Osmolality,Calculated 292 (280-300); Potassium 3.6 mEq/L (3.5-5.1); Sodium 140 mEq/L (136-145); eGFR For African Americans > 60 (> 60); eGFR For Non-African Americans > 60 (> 60)
[2018-12-29] MEDS: *HR* Heparin 5,000 UNIT/ML VIAL SQ SCH ×3 (05:13→21:46)
[2018-12-29] MEDS: Pantoprazole 40 MG VIAL IVP SCH (07:40)
[2018-12-29] MEDS ORDERED: Potassium Chloride Elixir 20 MEQ/15 ML UDC GTUBE ONE (10:20)
--- NOTE | 2018-12-29 10:46 | Cardiothoracic Progress Note ---
Date of Encounter: 12/29/18 Time of Encounter: 10:45 - Assessment and plan (1) Esophageal dysmotility Current Visit: Yes Status: Chronic The assessment and plan as outlined above was discussed with the patient and/or family members who expressed understanding and agreement. All questions were answered. rounded with nurse replace k change tube feed formula (2) Achalasia of esophagus Current Visit: Yes Status: Chronic The assessment and plan as outlined above was discussed with the patient and/or family members who expressed understanding and agreement. All questions were answered. - Subjective Interval history: no complaints, feels good. Vital Signs, Last 4 Hours Temp Pulse Resp BP Pulse Ox 12/29/18 08:00 81 12/29/18 07:29 98.9 F 77 16 126/76 98 Oxgyen Flow Rate Oxygen Flow Rate (LPM) 0 Clinical Data, last 8 Hours Output, Chest Tube Drainage 80 Amount [Right Mid-Axillary Chest] Output, Chest Tube Drainage 125 Amount [Right Mid-Axillary Chest] Output, Urine Amount 350 Weight 12/27/18 12/28/18 12/29/18 23:59 23:59 23:59 Weight 63.7 kg 65.1 kg - Physical Examination General: Conversant, No Apparent Distress, Well developed, Well nourished Neck: No JVD Cardiac: Reg Rate and Rhythm Neuro: Alert and responsive, No focal deficits noted, Cranial nerves intact, Motor nerves intact Abdomen: Other (bm today ) Extremities: No Clubbing, No Edema - Labs 12/29/18 03:42 12/29/18 03:42 Lab Results, Last 24 hours 12/29/18 12/29/18 03:42 03:42 WBC 8.5 Hgb 9.3 L Hct 27.8 L Plt Count 222 Sodium 140 Potassium 3.6 Chloride 109 H Carbon Dioxide 25 BUN 14 Creatinine 0.67 L Glucose 121 H Calcium 7.6 L - Imaging Chest Xray: image reviewed - VTE Documentation of Mechanical Device: Intermittent pneumatic compression device Consult Discharge Plan - Plan Additional Instructions: Please go to Out Patient testing on 2018 around 1015AM to get an x-ray done before you go see Dr. Friedman. The office is sending the order over to out patient testing at the [facility]. Referrals: Keyshawn Friedman MD [Partnered Physician] - 01/11/19 11:15 am Ramsey Gama MD [Primary Care Provider] - 01/07/19 1:30 pm ()
[2018-12-30 01:36] LABS: BUN/Creatinine Ratio 15 (6-26); Blood Urea Nitrogen 11 mg/dL (6-20); Calcium 7.9 mg/dL (8.6-10.3); Carbon Dioxide 23 mEq/L (23-29); Chloride 107 mEq/L (98-107); Glucose 141 mg/dL (70-105); Hematocrit 29.6 % (37.5-50.1); Hemoglobin 9.9 g/dL (12.9-16.9); Mean Corpuscular HGB Conc 33.4 g/dL (31.6-35.5); Mean Corpuscular Hemoglobin 29.9 pg (28.0-33.3); Mean Corpuscular Volume 89.4 fL (83.0-100.0); Mean Platelet Volume 9.8 fL (9.4-12.4); Osmolality,Calculated 288 (280-300); Platelet Count 253 K/mcL (140-400); Potassium 3.8 mEq/L (3.5-5.1); Red Blood Count 3.31 M/mcL (4.19-5.50); Red Cell Distribution Width 13.2 % (11.5-14.5); Sodium 138 mEq/L (136-145); White Blood Count 10.9 K/mcL (4.3-11.1); eGFR For African Americans > 60 (> 60); eGFR For Non-African Americans > 60 (> 60)
[2018-12-30] MEDS: D5% in 0.9% NACL 1,000 ML IVC SCH ×3 (03:31→21:35)
[2018-12-30] MEDS: *HR* Heparin 5,000 UNIT/ML VIAL SQ SCH ×3 (05:24→21:34)
[2018-12-30] MEDS: Pantoprazole 40 MG VIAL IVP SCH (07:55)
--- NOTE | 2018-12-30 13:09 | Cardiothoracic Progress Note ---
Date of Encounter: 12/30/18 Time of Encounter: 13:08 - Assessment and plan (1) Esophageal dysmotility Current Visit: Yes Status: Chronic The assessment and plan as outlined above was discussed with the patient and/or family members who expressed understanding and agreement. All questions were answered. rounded with nurse concerned about fever. will repeat swallow test (2) Achalasia of esophagus Current Visit: Yes Status: Chronic The assessment and plan as outlined above was discussed with the patient and/or family members who expressed understanding and agreement. All questions were answered. - Subjective Interval history: no complaints, feels good. Vital Signs, Last 4 Hours Temp Pulse Resp BP Pulse Ox 12/30/18 10:55 98.5 F 75 18 133/79 98 12/30/18 09:15 99.7 F H Oxgyen Flow Rate Oxygen Flow Rate (LPM) 0 Clinical Data, last 8 Hours Output, Chest Tube Drainage 40 Amount [Right Mid-Axillary Chest] Output, Chest Tube Drainage 0 Amount [Right Mid-Axillary Chest] Output, Chest Tube Drainage 0 Amount [Right Mid-Axillary Chest] Output, Urine Amount 200 Weight 12/28/18 12/29/18 12/30/18 23:59 23:59 23:59 Weight 65.1 kg - Physical Examination General: Other (resting. ambulated 10 laps today ) HEENT: Atraumatic Chest tubes: Minimal drainage, Other (thin serous chest tube drainage) - Labs 12/30/18 00:49 12/30/18 00:49 Lab Results, Last 24 hours 12/30/18 12/30/18 00:49 00:49 WBC 10.9 Hgb 9.9 L Hct 29.6 L Plt Count 253 Sodium 138 Potassium 3.8 Chloride 107 Carbon Dioxide 23 BUN 11 Creatinine 0.73 Glucose 141 H Calcium 7.9 L - Imaging Chest Xray: image reviewed - VTE Documentation of Mechanical Device: Intermittent pneumatic compression device Consult Discharge Plan - Plan Additional Instructions: Please go to Out Patient testing on 2018 around 1015AM to get an x-ray done before you go see Dr. Friedman. The office is sending the order over to out patient testing at the [facility]. Referrals: Keyshawn Friedman MD [Partnered Physician] - 01/11/19 11:15 am Ramsey Gama MD [Primary Care Provider] - 01/07/19 1:30 pm ()
[2018-12-30] MEDS: Docusate Oral Soln 100 MG/10 ML UDC GTUBE SCH (17:40)
[2018-12-31] MEDS: D5% in 0.9% NACL 1,000 ML IVC SCH ×4 (03:53→21:23)
[2018-12-31] MEDS: *HR* Heparin 5,000 UNIT/ML VIAL SQ SCH ×3 (03:54→20:54)
--- NOTE | 2018-12-31 08:55 | Cardiothoracic Progress Note ---
Date of Encounter: 12/31/18 Time of Encounter: 08:46 - Assessment and plan (1) Esophageal dysmotility Current Visit: Yes Status: Chronic The assessment and plan as outlined above was discussed with the patient and/or family members who expressed understanding and agreement. All questions were answered. rounded with nurse concerned about fever. will repeat swallow test (2) Achalasia of esophagus Current Visit: Yes Status: Chronic The assessment and plan as outlined above was discussed with the patient and/or family members who expressed understanding and agreement. All questions were answered. - Subjective Interval history: no complaints, feels good. Vital Signs, Last 4 Hours Temp Pulse Resp BP Pulse Ox 12/31/18 07:50 98.8 F 76 16 125/80 97 Oxgyen Flow Rate Oxygen Flow Rate (LPM) 0 Clinical Data, last 8 Hours Output, Chest Tube Drainage 55 Amount [Right Mid-Axillary Chest] Weight 12/29/18 12/30/18 12/31/18 23:59 23:59 23:59 Weight 65.1 kg - Physical Examination General: Conversant, No Apparent Distress, Well developed, Well nourished HEENT: Atraumatic, Normocephaly Cardiac: Reg Rate and Rhythm Incision: No signs of infection Chest tubes: Minimal drainage Lungs: Normal Breath Sounds Neuro: Alert and responsive, Cranial nerves intact Abdomen: Soft - Labs 12/30/18 00:49 12/30/18 00:49 - VTE Documentation of Mechanical Device: Intermittent pneumatic compression device Consult Discharge Plan - Plan Additional Instructions: Please go to Out Patient testing on 2018 around 1015AM to get an x-ray done before you go see Dr. Friedman. The office is sending the order over to out patient testing at the [facility]. Referrals: Keyshawn Friedman MD [Partnered Physician] - 01/11/19 11:15 am Ramsey Gama MD [Primary Care Provider] - 01/07/19 1:30 pm ()
[2018-12-31 09:49] LABS: Hematocrit 32.1 % (37.5-50.1); Hemoglobin 10.3 g/dL (12.9-16.9); Mean Corpuscular HGB Conc 32.1 g/dL (31.6-35.5); Mean Corpuscular Hemoglobin 29.1 pg (28.0-33.3); Mean Corpuscular Volume 90.7 fL (83.0-100.0); Mean Platelet Volume 9.2 fL (9.4-12.4); Platelet Count 311 K/mcL (140-400); Red Blood Count 3.54 M/mcL (4.19-5.50); Red Cell Distribution Width 13.2 % (11.5-14.5)
[2018-12-31 09:51] LABS: BUN/Creatinine Ratio 11 (6-26); Blood Urea Nitrogen 7 mg/dL (6-20); Calcium 8.2 mg/dL (8.6-10.3); Carbon Dioxide 29 mEq/L (23-29); Chloride 104 mEq/L (98-107); Glucose 148 mg/dL (70-105); Osmolality,Calculated 289 (280-300); Potassium 3.7 mEq/L (3.5-5.1); Sodium 139 mEq/L (136-145); eGFR For African Americans > 60 (> 60); eGFR For Non-African Americans > 60 (> 60)
[2018-12-31] MEDS: Pantoprazole 40 MG VIAL IVP SCH (10:02)
--- NOTE | 2018-12-31 10:44 | Physician Discharge Referral ---
Home Health/Hosp Referral Info Transfer to: Home Health Provider in Charge Post Discharge: PCP - Diagnosis (1) Esophageal dysmotility Priority: Primary Status: Chronic (2) Achalasia of esophagus Priority: Primary Status: Chronic - Respiratory Orders Smoking Cessation: Smoking cessation has been advised. For more information, call the [place] Tobacco Quit Line at 5-979-AIDZ-NOW. - Diet/Nutrition Diet/Nutrition: List: liquids osmolyte 1.2 malick 55 ml / hr. from 9 pm until 7 am for 1 month - Activity Activity Orders: Ambulate - Services Needed Following services are medically necessary services: Nursing - Transfer Medications Home Medications: Sildenafil Citrate [Revatio] 20 - 100 mg PO PRN PRN 12/23/18 [History] Allergies/Adverse Reactions: Allergy/AdvReac Type Severity Reaction Status Date / Time No Known Allergies Allergy Verified 12/06/17 12:34 Certification: Further, I certify that my clinical findings support that this patient is homebound (i.e. absences from home require considerable and taxing effort and are for medical reasons or jainism services or infrequently or short duration when for other reasons) because: Homebound Reason: Patient requires assistance of a person or device to safely leave home, Absences from home are contraindicated except to recieve medical care, Post-surgery restriction and or conditions limit ability to leave home, Leaving home requires considerable and taxing effort due to condition, Altered mental status requiring supervision when leaving home, Severity of cardiac or pulmonary status limits activity tolerance Attestation: My signature below is to certify that this patient is under my care and that I, or nurse practitioner, or a physician's assistant research scientist working with me, has a [id number] encounter with this patient.
[2018-12-31] MEDS ORDERED: E-Z-PAQUE (BARIUM SULF) SUSP 1 BOTTLE PO ONE (14:36)
[2018-12-31] MEDS: Docusate Oral Soln 100 MG/10 ML UDC GTUBE SCH (20:54)
[2019-01-01] MEDS: D5% in 0.9% NACL 1,000 ML IVC SCH (04:00)
[2019-01-01] MEDS: *HR* Heparin 5,000 UNIT/ML VIAL SQ SCH (05:53)
[2019-01-01 07:32] VITALS: BP 108/72
[2019-01-01] MEDS: Pantoprazole 40 MG VIAL IVP SCH (09:13)
--- NOTE | 2019-01-01 10:19 | Discharge Summary ---
Date of Encounter: 01/01/19 Time of Encounter: 10:17 - Discharge Diagnosis (1) Esophageal dysmotility Priority: Primary Status: Chronic (2) Achalasia of esophagus Priority: Primary Status: Chronic - Hospital Course Hospital course: Mr. Melissa is a 48 year old male - Time Spent with Patient Total time spent providing and/or coordinating discharge services: - Discharge Medications Prescriptions: No Action Sildenafil Citrate [Revatio] 20 - 100 mg PO PRN PRN PRN Reason: Erectile Dysfunction Home Medications: Sildenafil Citrate [Revatio] 20 - 100 mg PO PRN PRN 12/23/18 [History] Allergies/Adverse Reactions: 3 Allergy/AdvReac Type Severity Reaction Status Date / Time No Known Allergies Allergy Verified 12/06/17 12:34 Date of admission: 12/23/18 13:40 Primary care physician: Ramsey Gama MD Consults: none Procedure(s) Performed: Ivor_lewis esophagogastrectomy Discharging clinician: Keyshawn Friedman Anticipated date of discharge: 01/01/19 Physical Examination Vital Signs, Last 4 Hours Temp Pulse Resp BP Pulse Ox 01/01/19 07:30 70 01/01/19 07:29 98.3 F 66 16 108/72 97 General: Conversant, No Apparent Distress, Well developed, Well nourished HEENT: Atraumatic, Normocephaly Cardiac: Reg Rate and Rhythm, Normal S1 and S2 Lungs: Normal Breath Sounds Neuro: Alert and responsive, No focal deficits noted, Cranial nerves intact, Motor nerves intact Vascular: Normal capillary refill Abdomen: Soft, Non-tender - Patient Status Disposition: Home, Self-Care Condition: Good Functional capacity at discharge: independent ambulation Overall status at discharge: patient is progressing back to baseline - Discharge Instructions Follow Up With: Keyshawn Friedman MD [Partnered Physician] - 01/11/19 11:15 am Ramsey Gama MD [Primary Care Provider] - 01/07/19 1:30 pm () - Diet and Activity Activity: other (may drive, no lifting more than 20 pounds, remove chest dressing on thursday. ) Diet: other (tf at 60 ml / hr ) - VTE Documentation of Mechanical Device: Intermittent pneumatic compression device
== END 2019-01-01 12:45 | disposition home or self-care (01) | DRG 328 ==
LOC: SAMDAY 07:12 → ICNU 13:40 → 2NNU 12-25 12:33
PROVIDERS: ADMIT Thoracic Surgery (Cardiothoracic Vascular Surgery); ATTEND Thoracic Surgery (Cardiothoracic Vascular Surgery)
PROC: [UNRECOGNIZED PROCEDURE] (2018-12-23 08:30)